=== PATIENT | female | born 1990 | race Two or more races ===

== ENCOUNTER 2017-08-05 14:50 | Emergency (ER) | payer MEDICAID, OTHER ==
[~2017-08-05] VITALS: Ht 162.6 cm; Wt 68.0 kg
[2017-08-05 14:55] VITALS: BP 108/74
[2017-08-05] MEDS ORDERED: ACETAMINOPHEN 500 MG TAB PO ONE (17:30)
[2017-08-05] MEDS ORDERED: cefTRIAXone SOD 1,000 MG VL IM ONE (17:30)
== END 2017-08-05 18:20 | disposition home or self-care (01) ==
LOC: ER 14:50
DX: J03.90 Acute tonsillitis, unspecified (principal); R51 Headache
CPT/HCPCS: 96372; 99283; J0696

== ENCOUNTER 2022-09-20 08:00 | Observation (INO) | payer MEDICAID ==
[~2022-09-20] VITALS: Ht 160 cm; Wt 68.9 kg
[2022-09-20] MEDS ORDERED: PREN-96 PO (09:49)
== END 2022-09-20 10:05 | disposition home or self-care (01) ==
LOC: LDRP 08:00 → UNDOADMOB 08:00 → LDRP 08:08 → UNDODISOB 10:05
PROVIDERS: ADMIT Obstetrics & Gynecology; ATTEND Obstetrics & Gynecology
DX: O36.8130 Decreased fetal movements, third trimester, not applicable or unspecified (principal); Z3A.32 32 weeks gestation of pregnancy
CPT/HCPCS: 59025; 76818; 81002; 94760; G0378

== ENCOUNTER 2024-01-04 14:50 | Inpatient (IN) | payer MEDICAID ==
[~2024-01-04] VITALS: Ht 160 cm; Wt 65.0 kg
[~2024-01-04 14:50] MED LIST: PREN-96 PO
[2024-01-04 15:11] LABS: Basophils # (auto) 0 10 ^3/uL (0-0.2); Eosinophils # (auto) 0.1 10 ^3/uL (0-0.8); Lymphocytes # (auto) 1.6 10 ^3/uL (0.4-5.4); Lymphocytes % (auto) 20.8 % (10.0-50.0); Monocytes # (auto) 0.6 10 ^3/uL (0-1.3); Neutrophils # (auto) 5.3 10 ^3/uL (1.6-8.6)
[2024-01-04 15:14] LABS: Basophils % (auto) 0.3 % (0.0-2.0); Hematocrit 36.9 % (36.0-46.0); Hemoglobin 11.8 g/dL (12.2-16.2); Mean Corpuscular Hemoglobin 25.1 pg (28.0-32.0); Mean Corpuscular Hgb Conc. 32.1 g/dL (32.0-36.0); Mean Corpuscular Volume 78.2 fL (80.0-100.0); Monocytes % (auto) 7.9 % (0.0-12.0); Red Blood Cells 4.72 10^6/uL (4.0-5.20); Red Cell Distribution Width 15.2 % (11.8-14.3); White Blood Cell 7.6 10^3/uL (4.4-10.8)
[2024-01-04 15:29] LABS: Alanine Aminotransferase 20 U/L (7-40); Albumin 4.2 g/dL (3.2-4.8); Alkaline Phosphatase 121 U/L (46-116); Anion Gap 6 (5-15); Aspartate Aminotransferase 18 U/L (13-40); BUN/Creatinine Ratio 23.7 (10.0-20.0); Bilirubin, Total 0.4 mg/dL (0.2-1.0); Blood Urea Nitrogen 9 mg/dL (9-23); Calcium 9.8 mg/dL (8.7-10.4); Carbon Dioxide 24 mmol/L (20-30); Chloride 107 mmol/L (98-107); Glucose 120 mg/dL (74-106); Magnesium 1.8 mg/dL (1.6-2.6); Potassium 3.8 mmol/L (3.5-5.1); Sodium 137 mmol/L (136-145); Total Protein 7.4 g/dL (5.7-8.2)
[2024-01-04 15:46] LABS: Partial Thromboplastin Time 27.3 SEC (24.5-34.5); Prothrombin Time 10.6 sec (9.3-11.8)
[2024-01-04 16:31] LABS: Urine Bacteria None Seen /hpf (None Seen)
[2024-01-04 16:53] LABS: Urine Blood TRACE /uL (Negative); Urine Clarity Clear (Clear); Urine Color Yellow (Yellow); Urine Mucus FEW (None Seen); Urine Protein, UAD TRACE (Negative); Urine Specific Gravity 1.032 (1.001-1.035); Urine Urobilinogen Normal (Negative); Urine WBC 1 /hpf (0 - 5); Urine pH 5.5 (5.0-9.0)
[2024-01-04 17:01] LABS: Amphetamine Screen, Urine Neg (NEGATIVE)
[2024-01-04 17:02] LABS: Barbiturate Scree,Urine Neg (NEGATIVE); Benzodiazephine Screen, Urine Neg (NEGATIVE); Cannabinoid Screen, Urine Neg (NEGATIVE); Cocaine Screen, Urine Neg (NEGATIVE); Opiate Scree,Urine Neg (NEGATIVE); Phencyclidine Screen, Urine Neg (NEGATIVE)
[2024-01-04] MEDS: ALBUTEROL SULF 2.5 MG/0.5ML(0.5%) NEB SOLN ONE (18:57)
[2024-01-04] MEDS: IPRATROPIUM BROM 0.5 MG/2.5ML INH SOL ONE ×2 (18:57)
[2024-01-04] MEDS: SODIUM CHLORIDE 0.9% 1,000 ML IV ONE ×2 (20:20→21:44)
[2024-01-04] MEDS: ALBUTEROL SULF 2.5 MG/0.5ML(0.5%) NEB SOLN NEB ONE (20:39)
[2024-01-04] MEDS: IPRATROPIUM BROM 0.5 MG/2.5ML INH SOL NEB ONE (20:39)
[2024-01-04] MEDS: cefTRIAXone 1GM/50ML D5W 50 ML IV ONE (21:05)
[2024-01-04] MEDS ORDERED: ONDANSETRON HCL 4 MG/2 ML VIAL IV PRN (23:00)
[2024-01-04] MEDS ORDERED: NITROGLYCERIN 0.4 MG SL TAB SL PRN (23:00)
[2024-01-04] MEDS ORDERED: MORPHINE SULFATE INJ 2 MG/ml SYRG IV PRN ×2 (23:00)
[2024-01-04] MEDS ORDERED: HYDROcodone-ACET 5/325MG TAB PO PRN (23:00)
[2024-01-04] MEDS: SODIUM CHLORIDE 0.9% 1,000 ML IV SCH (23:20)
[2024-01-04] MEDS: MAGNESIUM SULFATE 1GM/100ML 100 ML IV SCH (23:35)
[2024-01-05] VITALS (9 sets, daily range): BP systolic 109–131; BP diastolic 64–81; PULSE 52–128; RESP 14–19; TEMP 97.9–98.7; O2SAT 95–98
[2024-01-05] MEDS: SODIUM CHLORIDE 0.9% 1,000 ML IV SCH (00:21)
[2024-01-05 00:38] LABS: Erythrocyte Sedimentation Rate 22 mm/hr (0-20)
[2024-01-05 07:37] LABS: Basophils # (auto) 0 10 ^3/uL (0-0.2); Basophils % (auto) 0.3 % (0.0-2.0); Eosinophils # (auto) 0.1 10 ^3/uL (0-0.8); Eosinophils % (auto) 1.4 % (0.0-7.0); Hematocrit 33.3 % (36.0-46.0); Hemoglobin 10.8 g/dL (12.2-16.2); Lymphocytes # (auto) 1.5 10 ^3/uL (0.4-5.4); Lymphocytes % (auto) 32.1 % (10.0-50.0); Mean Corpuscular Hemoglobin 25.3 pg (28.0-32.0); Mean Corpuscular Hgb Conc. 32.4 g/dL (32.0-36.0); Mean Corpuscular Volume 78.1 fL (80.0-100.0); Monocytes # (auto) 0.6 10 ^3/uL (0-1.3); Monocytes % (auto) 12.9 % (0.0-12.0); Neutrophils # (auto) 2.5 10 ^3/uL (1.6-8.6); Neutrophils % (auto) 53.3 % (37.0-80.0); Nucleated Red Blood Cells % 0.1 %; Red Blood Cells 4.27 10^6/uL (4.0-5.20); Red Cell Distribution Width 15.2 % (11.8-14.3); White Blood Cell 4.7 10^3/uL (4.4-10.8)
[2024-01-05 07:41] LABS: Alanine Aminotransferase 17 U/L (7-40); Albumin 3.8 g/dL (3.2-4.8); Alkaline Phosphatase 110 U/L (46-116); Anion Gap 7 (5-15); Aspartate Aminotransferase 12 U/L (13-40); BUN/Creatinine Ratio 17.9 (10.0-20.0); Bilirubin, Total 0.4 mg/dL (0.2-1.0); Blood Urea Nitrogen 7 mg/dL (9-23); Calcium 9.2 mg/dL (8.5-10.1); Carbon Dioxide 24 mmol/L (20-30); Chloride 109 mmol/L (98-107); Glucose 85 mg/dL (74-106); Potassium 3.9 mmol/L (3.5-5.1); Sodium 140 mmol/L (136-145); Total Protein 6.6 g/dL (5.7-8.2)
[2024-01-05] MEDS: cefTRIAXone 1GM/50ML D5W 50 ML IV SCH (21:30)
[2024-01-05] MEDS: ACETAMINOPHEN 325 MG TAB PO PRN (21:34)
[2024-01-06] VITALS (8 sets, daily range): BP systolic 104–121; BP diastolic 63–73; PULSE 66–110; RESP 14–19; TEMP 97.9–98; O2SAT 94–100
[2024-01-06] MEDS: AZITHROMYCIN 500MG/ 250ML 250 ML IV SCH (08:53)
[2024-01-06] MEDS: methIMAzole 5 MG TAB PO ONE (13:29)
[2024-01-07 01:00] VITALS: BP_SYST 107; BP_SYST 113; BP_DIAS 52; BP_DIAS 75; PULSE 77; PULSE 99; RESP 18; TEMP 97.7; TEMP 98.1; O2SAT 95; O2SAT 99
[2024-01-07 05:00] VITALS: BP_SYST 102; BP_SYST 96; BP_DIAS 60; BP_DIAS 61; PULSE 87; PULSE 91; RESP 18; RESP 19; TEMP 98; TEMP 98.1; O2SAT 100; O2SAT 97
[2024-01-07 07:58] VITALS: PULSE 92
[2024-01-07 08:00] VITALS: BP 104/64; PULSE 84; RESP 18; TEMP 98; O2SAT 96
[2024-01-07] MEDS: methIMAzole 5 MG TAB PO SCH ×2 (08:48→10:15)
[2024-01-07 12:00] VITALS: BP 105/65; PULSE 77; RESP 20; TEMP 98.4; O2SAT 97
[2024-01-07] MEDS ORDERED: METH-552 PO (13:47)
[2024-01-07] MEDS ORDERED: AZIT-74 PO (13:47)
[2024-01-07 14:15] VITALS: BP 105/65; PULSE 77; RESP 20; TEMP 98.4; O2SAT 97
[2024-01-07] MEDS: methIMAzole 5 MG TAB PO ONE (15:08)
[2024-01-08 09:48] LABS: Hepatitis B Surface Antigen Negative (Negative)
[2024-01-08 10:09] LABS: Hepatitis C Antibody Negative (Negative)
== END 2024-01-07 15:18 | disposition home or self-care (01) | DRG 137 ==
LOC: ER 14:51 → TELE 23:08 → TELE-CENTR 01-05 02:15 → CENTRAL 01-05 23:08
PROVIDERS: ADMIT Registered Nurse; ATTEND Internal Medicine
DX: J15.69 Pneumonia due to other Gram-negative bacteria (principal); R65.10 Systemic inflammatory response syndrome (SIRS) of non-infectious origin without acute organ dysfunction; E05.90 Thyrotoxicosis, unspecified without thyrotoxic crisis or storm; J15.9 Unspecified bacterial pneumonia
CPT/HCPCS: 36415; 71045; 76536; 76705; 80053; 80307; 81001; 83605; 83690; 83735; 83880; 84436; 84439; 84443; 84480; 84484; 84702; 85025; 85379; 85610; 85652; 85730; 86803; 87040; 87340; 93005; 93306; 94640; 99291; G0378

== ENCOUNTER 2024-01-22 19:32 | Emergency (ER) | payer MEDICAID ==
[~2024-01-22] VITALS: Ht 160 cm; Wt 60.0 kg
[~2024-01-22 19:32] MED LIST changes: +AZIT-74 PO; +METH-552 PO; -PREN-96 PO
[2024-01-22 23:00] VITALS: BP 131/87; PULSE 92; RESP 14; TEMP 98.2; O2SAT 98
[2024-01-22] MEDS ORDERED: ACET500T58 PO (23:44)
== END 2024-01-23 00:05 | disposition home or self-care (01) ==
LOC: ER 19:32
DX: S93.402A Sprain of unspecified ligament of left ankle, initial encounter (principal); Z79.899 Other long term (current) drug therapy; X58.XXXA Exposure to other specified factors, initial encounter; Y93.89 Activity, other specified; Y92.69 Other specified industrial and construction area as the place of occurrence of the external cause; Y99.8 Other external cause status
CPT/HCPCS: 73610; 93971

== ENCOUNTER 2025-04-02 11:12 | Emergency (ER) | payer MEDICAID ==
[~2025-04-02] VITALS: Ht 160 cm; Wt 70.5 kg
[~2025-04-02 11:12] MED LIST changes: +ACET500T58 PO
[2025-04-02 11:17] VITALS: TEMP 98.2
--- NOTE | 2025-04-02 11:39 | ED.PDOC ---
HPI Comments This is a 32-year-old female with past medical history of hypothyroidism came to the hospital due to chest pain since 1 week. She describes the pain as diffuse chest pain, intermittent, radiating to the neck, and provoked, pressure-like in nature, 7/10 intensity with no clear exacerbating or relieving factor. She denies fever, shortness of breath, cough, fever. Per patient, she has been under stress recently. Home meds: Levothyroxine Chief Complaint: Chest Pain Time Seen by MD: 11:36 Primary Care Provider: UNKNOWN Reviewed Notes: Nurses Notes Allergies: Coded Allergies: NO KNOWN ALLERGIES (Unverified , 08/05/17) Home Meds Active Scripts Acetaminophen (Acetaminophen) 500 Mg Tab, 500 MG PO Q4HPRN, #30 TAB 0 Refills Prov:ADAMS BANSAL 01/22/24 Azithromycin (Zithromax) 250 Mg Tab, 250 MG PO DAILY, #6 TAB take 2 tablets first day, then 1 tablet daily until finish Prov:LIT MANN MD 01/07/24 Methimazole (Methimazole) 10 Mg Tab, 10 MG PO BID, #60 TAB Prov:LIT MANN MD 01/07/24 Mode of Arrival: Ambulatory Past Medical History PAST MEDICAL HISTORY: Denies Past Medical History (Other): Hypothyroidism Surgical History: Denies all surgeries 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 Hx Family History Family History: Unknown Social History Smoker: Non-Smoker Alcohol: Denies ETOH Use Drugs: Denies Drug Use Lives In: Home Constitutional: denies: chills, diaphoresis, fatigue, fever, malaise, sweats, weakness, others EENTM: denies: blurred vision, double vision, ear bleeding, ear discharge, ear drainage, ear pain, ear ringing, eye pain, eye redness, hearing loss, mouth pain, mouth swelling, nasal discharge, nose bleeding, nose congestion, nose pain, photophobia, tearing, throat pain, throat swelling, voice changes, others Respiratory: denies: cough, hemoptysis, orthopnea, SOB at rest, shortness of breath, SOB with excertion, stridor, wheezing, others Cardiovascular: reports: chest pain; denies: dizzy spells, diaphoresis, Dyspnea on exertion, edema, irregular heart beat, left arm pain, lightheadedness, palpitations, PND, syncope, others Gastrointestinal: denies: abdomen distended, abdominal pain, blood streaked bowels, constipated, diarrhea, dysphagia, difficulty swallowing, hematemesis, melena, nausea, poor appetite, poor fluid intake, rectal bleeding, rectal pain, vomiting, others Genitourinary: denies: abnormal vagina bleeding, burning, dyspareunia, dysuria, flank pain, frequency, hematuria, incontinence, pain, , vagina discharge, urgency, others Neurological: denies: dizziness, fainting, headache, left sided numbness, left sided weakness, numbness, paresthesia, pre-existing deficit, right sided numbness, right sided weakness, seizure, speech problems, tingling, tremors, weakness, others Musculoskeletal: denies: back pain, gout, joint pain, joint swelling, muscle pain, muscle stiffness, neck pain, others Integumetry: denies: bruises, change in color, change in hair/nails, dryness, laceration, lesions, lumps, rash, wounds, others Allergic/Immunocompromised: denies: Difficulty Healing, Frequent Infections, Hives, Itching, others Hematologic/Lymphatic: denies: anemia, blood clots, easy bleeding, easy bruising, swollen glands, others Endocrine: denies: excessive hunger, excessive sweating, excessive thirst, excessive urination, flushing, intolerance to cold, intolerance to heat, u nexplained weight gain, unexplained weight loss, others Psychiatric: denies: anxiety, bipolar disorder, depression, hopeless, panic disorder, schizophrenia, sleepless, suicidal, others Physical Exam General Appearance: No Apparent Distress, Normal HEENT: Normal ENT Inspection, Pharynx Normal, TMs Normal Neck: Full Range of Motion, Non-Tender, Normal, Normal Inspection Respiratory: Chest Non-Tender, Lungs Clear, No Accessory Muscle Use, No Respiratory Distress, Normal Breath Sounds Cardiovascular: No Edema, No JVD, No Murmur, No Gallop, Normal Peripheral Pulses, Regular Rate/Rhythm Breast Exam: Deferred Gastrointestinal: No Organomegaly, Non Tender, No Pulsatile Mass, Normal Bowel Sounds, Soft Genitalia: Deferred Pelvic: Deferred Rectal: Deferred Extremities: No calf tenderness, Normal capillary refill, Normal inspection, Normal range of motion, Non-tender, No pedal edema Musculoskeletal : Apperance: Normal Neurologic: Alert, nuclear radiation engineer II-XII nml as Tested, No Motor Deficits, Normal Affect, Normal Mood, No Sensory Deficits Cerebellar Function: Normal Reflexes: Normal Skin: Dry, Normal Color, Warm Lymphatic: No Adenopathy EKG EKG : Comments Normal sinus rhythm with no significant ST or T-wave changes Was a procedure done? Was a procedure done?: No CP Differential Dx Differential Diagnosis: Other Differential Diagnosis: Angina, Chest Wall Pain, Costochondritis X-Ray, Labs, Meds, VS Vital Signs Date Time Temp Pulse Resp B/P (MAP) Pulse Ox O2 Delivery O2 Flow Rate FiO2 04/02/25 13:10 123/74 04/02/25 12:33 84 16 121/80 (94) 99 04/02/25 12:33 84 18 98 Room Air 04/02/25 11:45 121/80 04/02/25 11:19 82 04/02/25 11:17 98.2 80 16 121/81 98 98.2 Lab Test 04/02/25 14:46 04/02/25 12:47 04/02/25 12:02 Range/Units Troponin I High Sensitivity 5 5 4 </=34 ng/L White Blood Count 9.4 4.4-10.8 10^3/uL Red Blood Count 4.92 4.0-5.20 10^6/uL Hemoglobin 11.9 L 12.2-16.2 g/dL Hematocrit 37.8 36.0-46.0 % Mean Corpuscular Volume 76.9 L 80.0-100.0 fL Mean Corpuscular Hemoglobin 24.2 L 28.0-32.0 pg Mean Corpuscular Hemoglobin Concent 31.4 L 32.0-36.0 g/dL Red Cell Distribution Width 17.8 H 11.8-14.3 % Platelet Count 276 140-450 10^3/uL Mean Platelet Volume 9.9 6.9-10.8 fL Neutrophils (%) (Auto) 64.9 37.0-80.0 % Lymphocytes (%) (Auto) 23.9 10.0-50.0 % Monocytes (%) (Auto) 8.7 0.0-12.0 % Eosinophils (%) (Auto) 2.3 0.0-7.0 % Basophils (%) (Auto) 0.2 0.0-2.0 % Neutrophils # (Auto) 6.1 1.6-8.6 10 ^3/uL Lymphocytes # (Auto) 2.3 0.4-5.4 10 ^3/uL Monocytes # (Auto) 0.8 0-1.3 10 ^3/uL Eosinophils # (Auto) 0.2 0-0.8 10 ^3/uL Basophils # (Auto) 0 0-0.2 10 ^3/uL Nucleated Red Blood Cells 0.0 % Sodium Level 140 136-145 mmol/L Potassium Level 4.3 3.5-5.1 mmol/L Chloride Level 103 98-107 mmol/L Carbon Dioxide Level 27 20-31 mmol/L Anion Gap 10 5-15 Blood Urea Nitrogen 10 9-23 mg/dL Creatinine 0.57 0.550-1.02 mg/dL Glomerular Filtration Rate Calc 121 >90 mL/min BUN/Creatinine Ratio 17.5 10.0-20.0 Serum Glucose 94 74-106 mg/dL Calcium Level 10.0 8.7-10.4 mg/dL Total Bilirubin 0.2 0.2-1.0 mg/dL Aspartate Amino Transferase (AST) 17 13-40 U/L Alanine Aminotransferase (ALT) 13 7-40 U/L Alkaline Phosphatase 89 46-116 U/L Total Protein 8.0 5.7-8.2 g/dL Albumin 4.6 3.2-4.8 g/dL Current Medications Medications (Trade) Dose Ordered Sig/Pamela Route Start Time Stop Time Status Last Admin Aspirin 325 mg ONCE ONCE PO 04/02/25 11:45 04/02/25 11:46 DC 04/02/25 11:45 Atorvastatin Calcium (Lipitor) 80 mg ONCE ONCE PO 04/02/25 11:45 04/02/25 11:46 DC 04/02/25 11:45 Nitroglycerin (Ntrostat Sublingual) 0.4 mg ONCE ONCE SL 04/02/25 11:45 04/02/25 11:46 DC 04/02/25 11:45 Time of 1ST Reevaluation: 18:04 Reevaluation 1ST: Improved Patient Education/Counseling: Diagnosis, Treatment, Prognosis, Need For Follow Up Family Education/Counseling: No Family Present Comments Patient came to the hospital due to chest pain. EKG showed normal sinus rhythm with no significant ST or T-wave changes. Patient was vitally stable. Patient was given aspirin atorvastatin and nitroglycerin. Chest x-ray performed, showed no significant intrathoracic abnormality. CBC and CMP performed, normal Serial trop I within normal. On subsequent check up, patient was feeling better and had no chest pain. Patient was recommended to follow up with the PCP on outpatient basis. Discharged home SEPSIS Sepsis Screen Date sepsis recognized/suspect: Apr 02, 2025 Time Sepsis recognized/suspect: 1120 Recent Procedure: No On Antibiotic Therapy: No Respiratory Rate >20: No Heart Rate >90: No Temp<36 C (96.8 F) or >38.3 C: No SBP <90 or MAP <65 mmHG: No New Acute Mental Status Change: No Is the patient on CPAP, BIPAP,: No Physician Orders Drug Screen (04/02/25 11:39) Chest Xray 1 View (04/02/25 11:39) Electrocardigram (04/02/25 13:01) Electrocardigram (04/02/25 13:35) Electrocardigram (04/02/25 16:35) Vital Signs Date Time Temp Pulse Resp B/P (MAP) Pulse Ox O2 Delivery O2 Flow Rate FiO2 04/02/25 13:10 123/74 04/02/25 12:33 84 16 121/80 (94) 99 04/02/25 12:33 84 18 98 Room Air 04/02/25 11:45 121/80 04/02/25 11:19 82 04/02/25 11:17 98.2 80 16 121/81 98 98.2 Laboratory Tests Test 04/02/25 12:02 White Blood Count 9.4 10^3/uL (4.4-10.8) Medications Medications Dose Ordered Sig/Pamela Route Start Time Stop Time Status Last Admin Dose Admin Aspirin 325 mg ONCE ONCE PO 04/02/25 11:45 04/02/25 11:46 DC 04/02/25 11:45 Atorvastatin Calcium 80 mg ONCE ONCE PO 04/02/25 11:45 04/02/25 11:46 DC 04/02/25 11:45 Nitroglycerin 0.4 mg ONCE ONCE SL 04/02/25 11:45 04/02/25 11:46 DC 04/02/25 11:45 Departure 1 Departure Time of Disposition: 18:08 Impression: Primary Impression: Musculoskeletal chest pain Disposition: HOME / SELF CARE / HOMELESS Condition: Fair Critical Care Note Critical Care Time?: Yes (45 min-critical care time only) Stability Stability form required: No Heart Score Heart Score: Heart Score Response (Comments) Value History N/A 0 EKG N/A 0 Age <45 0 Risk Factors N/A 0 Troponin N/A 0 Total 0 DIPAK TOM Apr 02, 2025 11:39
[2025-04-02] MEDS: ATORVASTATIN 20 MG TAB PO ONE (11:45)
[2025-04-02] MEDS: NITROGLYCERIN 0.4 MG SL TAB SL ONE (11:45)
--- NOTE | 2025-04-02 12:16 | DVH ---
EXAM: XY CHEST XRAY 1 VIEW Indication: chest pain Technique: Single frontal view of the chest was obtained Comparison: XY CHEST PORTABLE on DOS: 01/04/24 FINDINGS: Lines and Tubes: None Lungs: No focal consolidation. Pleura: No effusion. No pneumothorax. Cardiomediastinal contours: Unremarkable Bones: No acute osseous abnormality. IMPRESSION: No acute cardiopulmonary disease.
[2025-04-02 12:21] LABS: Hemoglobin 11.9 g/dL (12.2-16.2); Nucleated Red Blood Cells % 0.0 %
[2025-04-02 12:22] LABS: Hematocrit 37.8 % (36.0-46.0); Mean Corpuscular Hemoglobin 24.2 pg (28.0-32.0); Mean Corpuscular Volume 76.9 fL (80.0-100.0)
[2025-04-02 12:33] VITALS: BP 121/80; PULSE 84; RESP 18; O2SAT 98
[2025-04-02 12:36] LABS: Alanine Aminotransferase 13 U/L (7-40); Albumin 4.6 g/dL (3.2-4.8); Alkaline Phosphatase 89 U/L (46-116); Anion Gap 10 (5-15); BUN/Creatinine Ratio 17.5 (10.0-20.0); Blood Urea Nitrogen 10 mg/dL (9-23); Calcium 10.0 mg/dL (8.7-10.4); Carbon Dioxide 27 mmol/L (20-31); Chloride 103 mmol/L (98-107); Glucose 94 mg/dL (74-106); Potassium 4.3 mmol/L (3.5-5.1); Sodium 140 mmol/L (136-145); Total Protein 8.0 g/dL (5.7-8.2)
[2025-04-02 12:37] LABS: Bilirubin, Total 0.2 mg/dL (0.2-1.0)
--- NOTE | 2025-04-02 13:03 | ECG ---
[facility] Test Date: 2025-04-02 Test Time: 11:19:48 Pat Name: LUCY MCBRIDE Department: [facility] ED Patient ID: [id number] Room: Gender: F [employer] Coordinator: FLORES : 1990 Requested By: DIPAK TOM Order Number: [id number] Reading MD: Ja De Jesus Measurements Intervals [place] Rate: 82 P: 70 [place]: 156 QRS: 85 QRSD: 96 T: 51 QT: 362 QTc: 423 Interpretive Statements Sinus rhythm Electronically Signed On 04-02-2025 17:01:51 PDT by Ja De Jesus Please click the below link to view image of tracing.
== END 2025-04-02 18:15 | disposition home or self-care (01) ==
LOC: ER 11:12
DX: R07.89 Other chest pain (principal); Z79.899 Other long term (current) drug therapy
CPT/HCPCS: 36415; 71045; 80053; 84484; 85025; 93005